=== PATIENT | male | born 1945 | race Caucasian/White ===

== ENCOUNTER 2021-12-26 17:12 | Observation (INO) ==
[2021-12-26 20:55] LABS: Bilirubin,Urine Negative (Negative); Blood,Urine Negative (Negative); Clarity,Urine Clear (Clear); Color,Urine Light-Yellow (Yellow); Glucose,Urine (UA) Normal (Normal); Ketones,Urine Negative (Negative); Leukocyte Esterase,Urine Negative (Negative); Nitrite,Urine Negative (Negative); PH,Urine 6.5 pH Units (5.0-8.0); Protein,Urine Negative (Neg-Trace); Specific Gravity,Urine 1.015 (1.010-1.025); Urobilinogen,Urine Normal (Normal)
[2021-12-26] MEDS ORDERED: Perflutren Lipid Microsphere 1.3 ML in 0.9 % Sodium Chloride 8.7 ML IVP PRN (20:58)
[2021-12-26 21:03] LABS: Basophils % 0.7 %; Eosinophils # 0.2 K/mcL (0.0-0.6); Eosinophils % 3.7 %; Hematocrit 42.2 % (37.5-50.1); Immature Granulocytes % 0.2 % (0-4); Lymphocytes # 2.1 K/mcL (0.6-4.6); Mean Corpuscular HGB Conc 33.2 g/dL (31.6-35.5); Mean Corpuscular Hemoglobin 30.3 pg (28.0-33.3); Mean Corpuscular Volume 91.3 fL (83.0-100.0); Mean Platelet Volume 9.7 fL (9.4-12.4); Monocytes # 0.4 K/mcL (0.0-1.3); Monocytes % 7.7 %; Neutrophils # 2.6 K/mcL (1.6-8.9); Platelet Count 144 K/mcL (140-400); Red Blood Count 4.62 M/mcL (4.19-5.50); Red Cell Distribution Width 13.1 % (11.5-14.5); Segmented Neutrophils % 48.7 %; White Blood Count 5.3 K/mcL (4.3-11.1)
[2021-12-26] MEDS ORDERED: *HR* Heparin 5,000 UNIT/ML VIAL IVP PRN ×2 (21:03)
[2021-12-26] MEDS ORDERED: Nitroglycerin 0.4 MG TAB.SUBL SL PRN (21:04)
[2021-12-26] MEDS ORDERED: Morphine Sulfate 2 MG/ML SYRINGE IVP PRN (21:05)
[2021-12-26 21:09] LABS: INR 1.1; Prothrombin Time 12.4 Seconds (9.4-12.1)
[2021-12-26 21:12] LABS: Activated Partial Thrombo Time 72.8 Seconds (26.0-36.0)
[2021-12-26] MEDS ORDERED: Ondansetron 4 MG/2 ML VIAL IVP PRN (21:13)
[2021-12-26] MEDS ORDERED: Acetaminophen 325 MG TABLET PO PRN (21:13)
[2021-12-26] MEDS ORDERED: Naloxone 0.4 MG/ML INJ IVP PRN (21:13)
[2021-12-26] MEDS ORDERED: Heparin 25,000UNIT/250ML 1/2NS 25,000 UNIT/250 ML IV.SOLN IVC SCH (21:15)
[2021-12-26 21:26] LABS: Chol/HDL Ratio 6.5 (0-4.9)
[2021-12-26 21:29] LABS: Estimated Average Glucose 103 mg/dl; Hemoglobin A1C 5.2 %; Troponin I 0.45 ng/mL (< 0.04)
[2021-12-26 21:37] LABS: Heparin anti-factor XA UFH 0.32 IU/mL (0.30-0.70)
[2021-12-26 21:56] LABS: Folate 16.8 ng/mL (3.0-16.0)
[2021-12-26 22:23] LABS: Alanine Aminotransferase 17 Units/L (7-52); Albumin 3.7 g/dL (3.5-5.7); Albumin/Globulin Ratio 1.3 (1.1-2.2); Alkaline Phosphatase 59 Units/L (34-104); Aspartate Amino Transferase 17 Units/L (13-39); BUN/Creatinine Ratio 13 (6-26); Bilirubin,Total 0.4 mg/dL (0.3-1.0); Blood Urea Nitrogen 12 mg/dL (8-23); Calcium 9.1 mg/dL (8.6-10.3); Carbon Dioxide 27 mEq/L (23-29); Chloride 109 mEq/L (98-107); Globulin 2.8 g/dL (2.4-3.5); Glucose 60 mg/dL (70-105); Iron 55 mcg/dL (65-175); Osmolality,Calculated 292 (280-300); Potassium 3.5 mEq/L (3.5-5.1); Sodium 142 mEq/L (136-145); Total Protein 6.5 g/dL (6.4-8.9); eGFR For African Americans > 60 (> 60); eGFR For Non-African Americans > 60 (> 60)
[2021-12-26 22:25] LABS: % Iron Saturation 19 % (20-55); Transferrin 208 mg/dL (203-362)
[2021-12-26 22:36] LABS: Thyroid Stimulating Hormone 1.325 mcIU/mL (0.340-5.600)
[2021-12-26 22:41] LABS: Ferritin 105 ng/mL (20-250)
[2021-12-27 00:59] LABS: Hematocrit 40.8 % (37.5-50.1); Hemoglobin 13.4 g/dL (12.9-16.9); Mean Corpuscular HGB Conc 32.8 g/dL (31.6-35.5); Mean Corpuscular Hemoglobin 29.9 pg (28.0-33.3); Mean Corpuscular Volume 91.1 fL (83.0-100.0); Platelet Count 196 K/mcL (140-400); Red Blood Count 4.48 M/mcL (4.19-5.50); White Blood Count 5.2 K/mcL (4.3-11.1)
[2021-12-27 01:18] LABS: BUN/Creatinine Ratio 15 (6-26); Blood Urea Nitrogen 13 mg/dL (8-23); Calcium 8.7 mg/dL (8.6-10.3); Carbon Dioxide 25 mEq/L (23-29); Chloride 109 mEq/L (98-107); Glucose 85 mg/dL (70-105); Osmolality,Calculated 291 (280-300); Potassium 3.9 mEq/L (3.5-5.1); Sodium 141 mEq/L (136-145); eGFR For African Americans > 60 (> 60); eGFR For Non-African Americans > 60 (> 60)
[2021-12-27] MEDS: Aspirin Enteric Coated 81 MG Tablet PO SCH (08:09)
[2021-12-27] MEDS ORDERED: Heparin 1,000 UNITS/500 mL 500 ML ONE (13:59)
[2021-12-27] MEDS ORDERED: *HR* Heparin 10,000 UNIT/10 ML VIAL ONE (13:59)
[2021-12-27] MEDS ORDERED: ISOVUE-370 200 ML INFUS..BTL ONE ×2 (13:59→15:31)
[2021-12-27] MEDS ORDERED: Nitroglycerin 1,000 MCG/5 ML VIAL IV ONE (13:59)
[2021-12-27] MEDS ORDERED: 0.9 % Sodium Chloride 2,000 ML ONE (13:59)
[2021-12-27] MEDS ORDERED: *HR* FentaNYL (PF) 100 MCG/2 ML VIAL ONE (14:53)
[2021-12-27] MEDS ORDERED: *HR* Midazolam HCl 2 MG/2 ML VIAL ONE (14:53)
[2021-12-27] MEDS ORDERED: *HR* Bivalirudin 250 MG VIAL IVC ONE (15:23)
[2021-12-27] MEDS ORDERED: *HR* Atropine Sulfate 1 MG/10 ML SYRINGE ONE (15:30)
[2021-12-27] MEDS ORDERED: *HR* Ticagrelor 90 MG TABLET ONE (15:42)
[2021-12-27] MEDS: *HR* Ticagrelor 90 MG TABLET PO SCH (20:50)
[2021-12-28 04:24] LABS: Hemoglobin 13.9 g/dL (12.9-16.9); Mean Corpuscular HGB Conc 33.1 g/dL (31.6-35.5); Mean Corpuscular Hemoglobin 29.7 pg (28.0-33.3); Mean Corpuscular Volume 89.7 fL (83.0-100.0); Mean Platelet Volume 10.2 fL (9.4-12.4); Platelet Count 200 K/mcL (140-400); Red Blood Count 4.68 M/mcL (4.19-5.50); Red Cell Distribution Width 13.2 % (11.5-14.5); White Blood Count 5.4 K/mcL (4.3-11.1)
[2021-12-28 04:41] LABS: BUN/Creatinine Ratio 15 (6-26); Blood Urea Nitrogen 15 mg/dL (8-23); Carbon Dioxide 25 mEq/L (23-29); Chloride 109 mEq/L (98-107); Glucose 84 mg/dL (70-105); Magnesium 2.1 mg/dL (1.6-2.6); Osmolality,Calculated 290 (280-300); Potassium 3.8 mEq/L (3.5-5.1); Sodium 140 mEq/L (136-145); eGFR For African Americans > 60 (> 60); eGFR For Non-African Americans > 60 (> 60)
[2021-12-28 07:20] VITALS: BP 114/66; PULSE 61; TEMP 98.1; O2SAT 97
[2021-12-28] MEDS: Aspirin Enteric Coated 81 MG Tablet PO SCH (07:36)
[2021-12-28] MEDS: *HR* Ticagrelor 90 MG TABLET PO SCH (07:37)
[2021-12-28] MEDS ORDERED: Metoprolol XL (24 HR) Succ 25 MG TAB.ER.24H PO SCH (09:00)
== END 2021-12-28 10:53 | disposition home or self-care (01) ==
LOC: 2ANU → SUATTDRO 19:05
PROVIDERS: ADMIT Internal Medicine; ATTEND Pharmacist